=== PATIENT | male | born 1985 | race African-American/Black ===

== ENCOUNTER 2023-06-28 22:04 | Inpatient (IN) | payer BC ==
[2023-06-28] MEDS ORDERED: ONDANSETRON 4 MG/2 ML VIAL ONE (23:36)
[2023-06-28] MEDS ORDERED: MORPHINE 4 MG/ML SYR ONE (23:37)
[2023-06-28] MEDS ORDERED: FAMOTIDINE 20 MG/2 ML VIAL IV ONE (23:37)
[2023-06-28] MEDS ORDERED: METRONIDAZOLE 500mg IVPB 500 MG/100 ML BAG IV ONE (23:37)
[2023-06-28] MEDS ORDERED: CIPROFLOXACIN 400mg IV 400 MG/200 ML BAG IV ONE (23:37)
[2023-06-28] MEDS ORDERED: NA CHLORIDE 0.9% 1,000 ML ONE (23:37)
--- NOTE | 2023-06-28 23:44 | ER ---
Nurse's Notes [facility] Name: Anthony Velazco Age: 37 yrs Sex: Male : 1985 Arrival Date: 06/28/2023 Time: 22:04 Bed 7 Private MD: None, None Diagnosis: Obesity, unspecified;GI Bleed/ Gastrointestinal hemorrhage, unspecified-lower;Essential (primary) hypertension;Abnormal findings on diagnostic imaging of other specified body structures-1.1 cm pancreatic mass Presentation: 06/28 22:21 Chief complaint: Patient states: Black tarry stools X2 days. Pt reports that he is cm10 having some RLQ abdominal pain. Pt reports having nausea. Coronavirus screen: Vaccine status: Patient reports receiving the 2nd dose of the covid vaccine. Client denies travel out of the [place] in the last 14 days. Ebola Screen: Patient denies travel to an Ebola-affected area in the 21 days before illness onset. No symptoms or risks identified at this time. Initial Sepsis Screen: Does the patient meet any 2 criteria? No. Patient's initial sepsis screen is negative. Does the patient have a suspected source of infection? No. Patient's initial sepsis screen is negative. Risk Assessment: Do you want to hurt yourself or someone else? Patient reports no desire to harm self or others. Onset of symptoms was June 28, 2023. 22:21 Method Of Arrival: Ambulatory cm10 22:21 Acuity: PEG 3 cm10 Historical: - Allergies: 22:23 No Known Allergies; cm10 - PMHx: 22:23 Hypertensive disorder; Borderline DM; cm10 - Immunization history:: Adult Immunizations up to date. - Social history:: Smoking status: Patient reports the use of cigarette tobacco products, denies chronic smoking, but will smoke occasionally. - Family history:: not pertinent. Screenin/08 00:01 [facility] ED Fall Risk Assessment (Adult) History of falling in the last 3 months, tm6 including since admission No falls in past 3 months (0 pts). Abuse screen: Denies threats or abuse. Denies injuries from another. Nutritional screening: No deficits noted. Tuberculosis screening: No symptoms or risk factors identified. Assessment: 06/28 23:52 Pain: Denies pain. Neuro:. tm6 06/29 00:01 General: Appears in no apparent distress. Behavior is calm, cooperative. Neuro: Level tm6 of Consciousness is awake, alert, obeys commands, Oriented to person, place, time, situation. Cardiovascular: Capillary refill < 3 seconds Patient's skin is warm and dry. Respiratory: Airway is patent Respiratory effort is even, unlabored, Respiratory pattern is regular, symmetrical. GI: Abdomen is round non-distended, Reports bloody stool. : No signs and/or symptoms were reported regarding the genitourinary system. EENT: No signs and/or symptoms were reported regarding the EENT system. Derm: No signs and/or symptoms reported regarding the dermatologic system. Musculoskeletal: No signs and/or symptoms reported regarding the musculoskeletal system. 07:00 Reassessment: see [facility] for further charting. mb9 Vital Signs: 06/28 22:21 BP 147 / 102; Pulse 66; Resp 18; Temp 97.7; Pulse Ox 98% on R/A; Weight 169.64 kg; cm10 Height 5 ft. 10 in. ; Pain 3/10; 23:52 BP 139 / 77; Pulse 70; Pulse Ox 99% on R/A; tm6 22:21 Body Mass Index 53.66 (169.64 kg, 177.8 cm) cm10 22:21 Pain Scale: Adult cm10 [place]ia Coma Score: 23:37 Eye Response: spontaneous(4). Motor Response: obeys commands(6). Verbal Response: aniket oriented(5). Total: 15. ED Course: 22:10 Patient arrived in ED. es 22:10 None, None is Private Physician. es 22:23 Triage completed. cm10 22:23 Arm band placed on Patient placed in waiting room. cm10 22:29 Joel Linares MD is Attending Physician. aniket 23:23 Inserted saline lock: 20 gauge in right wrist, using aseptic technique. jb4 23:42 Dane Nguyen MD is Hospitalizing Provider. aniket 06/29 00:01 Patient has correct armband on for positive identification. Bed in low position. Side tm6 rails up X2. Provided Education on: plan of care. Client placed on continuous cardiac and pulse oximetry monitoring. NIBP monitoring applied. Door closed. Noise minimized. Lights dimmed. Warm blanket given. 00:01 No provider procedures requiring assistance completed. Missed attempt(s): 22 gauge in tm6 right antecubital area. Bleeding controlled, band aid applied, catheter tip intact. 00:45 CT Abd/Pelvis - IV Contrast Only In Process Unspecified. EDMS 00:55 Rolan Harris, RN is Primary Nurse. rv 01:43 Patient admitted, IV remains in place. rv Administered Medications: 06/28 23:51 Drug: NS 0.9% IV 1000 ml IV at 1 bolus Per protocol; 1000 mL bolus Route: IV; Rate: 1 tm6 bolus; Site: right wrist; 06/29 01:43 Follow up: Response: No adverse reaction; IV Status: Completed infusion; IV Intake: rv 1000ml 06/28 23:51 Drug: Famotidine IVP 20 mg IVP once; dilute with 10 mL 0.9% NaCl; give over 2 minutes tm6 Route: IVP; Site: right wrist; 06/29 01:43 Follow up: Response: No adverse reaction rv 06/28 23:51 Drug: Ondansetron IVP 4 mg IVP once; over 2 minutes Route: IVP; Site: right wrist; tm6 06/29 01:44 Follow up: Response: No adverse reaction rv 06/28 23:51 Drug: metroNIDAZOLE IVPB 500 mg 100 ml IVPB at 200 ml/hr once over 30 mins Volume: 100 tm6 ml; Route: IVPB; Rate: 200 ml/hr; Infused Over: 30 mins; Site: right wrist; 06/29 01:43 Follow up: IV Status: Infusion continued upon admission rv 00:58 Drug: Rocephin IV 2 grams IV at per protocol once; Given slow IV push per pharmarcy tm6 instructions Route: IV; Rate: per protocol; Site: right wrist; 01:43 Follow up: Response: No adverse reaction; IV Status: Completed infusion rv 01:07 Not Given (Patient Refused): morphineor iv 4 mg IVP once over 4 mins tm6 01:07 Drug: Ciprofloxacin IVPB 400 mg 200 ml IVPB once over 60 mins Volume: 200 ml; Route: tm6 IVPB; Infused Over: 60 mins; Site: right wrist; :43 Follow up: IV Status: Infusion continued upon admission rv Medication: 00:01 VIS not applicable for this client. tm6 Intake: :43 IV: 1000ml; Total: 1000ml. rv Outcome: 06/28 23:43 Decision to Hospitalize by Provider. aniket 01/08 01:43 Admitted to ER Hold. Please see [facility] for further documentation. rv Condition: good Instructed on the need for admit, 23:20 Admitted to Med/surg accompanied by tech, via wheelchair, room 210, with chart, Report rv called to VIKKI CHISHOLM 23:21 Patient left the ED. rv Signatures: Dispatcher [employer] Joel Santamaria MD MD cha Salyer, Edna es Bryson, James RN RN jb4 Rolan Harris RN RN Zeynep Baker, RN RN mb9 Lexi Flores, RN RN cm10 Hailey Buenrostro RN RN tm6
--- NOTE | 2023-06-28 23:44 | EDPHYS ---
Physician Documentation [facility] Name: Anthony Velazco Age: 37 yrs Sex: Male : 1985 Arrival Date: 06/28/2023 Time: 22:04 Bed 7 Private MD: None, None ED Physician Joel Linares HPI: 06/28 23:37 This 37 yrs old Black Male presents to ER via Ambulatory with complaints of Bloody aniket Stools. 23:37 The patient presents with abdominal pain in the lower abdomen, in the left lower aniket quadrant. Onset: The symptoms/episode began/occurred 3 day(s) ago. The patient presents to the emergency department with rectal bleeding, bright red blood with bowel movement. Onset: The symptoms/episode began/occurred 2 day(s) ago. Abdominal pain: located in the left lower quadrant. Modifying factors: The symptoms are alleviated by nothing, the symptoms are aggravated by nothing. The symptoms do not radiate. Associated signs and symptoms: The patient has no apparent associated signs or symptoms. The symptoms are described as crampy. Historical: - Allergies: 22:23 No Known Allergies; cm10 - PMHx: 22:23 Hypertensive disorder; Borderline DM; cm10 - Immunization history:: Adult Immunizations up to date. - Social history:: Smoking status: Patient reports the use of cigarette tobacco products, denies chronic smoking, but will smoke occasionally. - Family history:: not pertinent. ROS: 23:37 Constitutional: Negative for fever, chills, and weight loss, Eyes: Negative for injury, aniket pain, redness, and discharge, ENT: Negative for injury, pain, and discharge, Neck: Negative for injury, pain, and swelling, Cardiovascular: Negative for chest pain, palpitations, and edema, Respiratory: Negative for shortness of breath, cough, wheezing, and pleuritic chest pain, Back: Negative for injury and pain, : Negative for injury, bleeding, discharge, and swelling, MS/Extremity: Negative for injury and deformity, Skin: Negative for injury, rash, and discoloration, Neuro: Negative for headache, weakness, numbness, tingling, and seizure, Psych: Negative for depression, anxiety, suicide ideation, homicidal ideation, and hallucinations, Allergy/Immunology: Negative for hives, rash, and allergies, Endocrine: Negative for neck swelling, polydipsia, polyuria, polyphagia, and marked weight changes, Hematologic/Lymphatic: Negative for swollen nodes, abnormal bleeding, and unusual bruising, 23:37 Abdomen/GI: Positive for abdominal pain, abdominal distension, of the left lower quadrant, Exam: 23:37 Constitutional: This is a well developed, well nourished patient who is awake, alert, aniket and in no acute distress. Head/Face: Normocephalic, atraumatic. Eyes: Pupils equal round and reactive to light, extra-ocular motions intact. Lids and lashes normal. Conjunctiva and sclera are non-icteric and not injected. Cornea within normal limits. Periorbital areas with no swelling, redness, or edema. ENT: Nares patent. No nasal discharge, no septal abnormalities noted. Tympanic membranes are normal and external auditory canals are clear. Oropharynx with no redness, swelling, or masses, exudates, or evidence of obstruction, uvula midline. Mucous membranes moist. Neck: Trachea midline, no thyromegaly or masses palpated, and no cervical lymphadenopathy. Supple, full range of motion without nuchal rigidity, or vertebral point tenderness. No Meningismus. Chest/axilla: Normal chest wall appearance and motion. Nontender with no deformity. No lesions are appreciated. Cardiovascular: Regular rate and rhythm with a normal S1 and S2. No gallops, murmurs, or rubs. Normal PMI, no JVD. No pulse deficits. Respiratory: Lungs have equal breath sounds bilaterally, clear to auscultation and percussion. No rales, rhonchi or wheezes noted. No increased work of breathing, no retractions or nasal flaring. Back: No spinal tenderness. No costovertebral tenderness. Full range of motion. Male : Normal genitalia with no discharge or lesions. Skin: Warm, dry with normal turgor. Normal color with no rashes, no lesions, and no evidence of cellulitis. MS/ Extremity: Pulses equal, no cyanosis. Neurovascular intact. Full, normal range of motion. Neuro: Awake and alert, GCS 15, oriented to person, place, time, and situation. Cranial nerves II-XII grossly intact. Motor strength 5/5 in all extremities. Sensory grossly intact. Cerebellar exam normal. Normal gait. Psych: Awake, alert, with orientation to person, place and time. Behavior, mood, and affect are within normal limits. 23:37 Abdomen/GI: Rectal exam: is unremarkable, rectal tone normal, Stool: grossly bloody, no melena, min red blood, Liver: no appreciated palpable abnormalities, Hernia: not appreciated, Vital Signs: 22:21 BP 147 / 102; Pulse 66; Resp 18; Temp 97.7; Pulse Ox 98% on R/A; Weight 169.64 kg; cm10 Height 5 ft. 10 in. ; Pain 3/10; 23:52 BP 139 / 77; Pulse 70; Pulse Ox 99% on R/A; tm6 22:21 Body Mass Index 53.66 (169.64 kg, 177.8 cm) cm10 22:21 Pain Scale: Adult cm10 Rachel Coma Score: 23:37 Eye Response: spontaneous(4). Motor Response: obeys commands(6). Verbal Response: aniket oriented(5). Total: 15. MDM: 22:29 Patient medically screened. aniket 23:39 Differential diagnosis: diverticulitis, hemorrhoids, diverticulitis, non-specific abd aniket pain, pancreatitis, Peptic Ulcer Disease, urinary tract infection. Data reviewed: vital signs, nurses notes, lab test result(s), radiologic studies, CT scan. Consideration of Admission/Observation Patient was admitted/placed on observation. Escalation of care including admission/observation considered. I considered the following discharge prescriptions or medication management in the emergency department Medications were administered in the Emergency Department. See MAR. Independent interpretation of the following test(s) in the Emergency Department CT Scan: My interpretation is ct abd pain. Test considered but Not performed: Ultrasound no abd usg. Historians other than the Patient: Spouse/Significant Other: . Care significantly affected by the following chronic conditions: Diabetes, Hypertension, Obesity. Counseling: I had a detailed discussion with the patient and/or guardian regarding the historical points, exam findings, and any diagnostic results supporting the discharge/admit diagnosis, lab results, radiology results, the need for further work-up and treatment in the hospital. 06/28 22:30 Order name: CBC with Diff; Complete Time: 01:20 [facility] 06/28 22:30 Order name: CMP; Complete Time: 00:37 aniket 06/28 22:30 Order name: Lipase; Complete Time: 00:37 aniket 06/28 22:30 Order name: Urinalysis w/ reflexes; Complete Time: 05:28 aniket 06/29 02:03 Order name: Urinalysis w/ reflexes EDMS 06/29 02:03 Order name: CBC with Automated Diff EDMS 06/29 02:03 Order name: CBC with Automated Diff EDMS 06/29 02:03 Order name: Comprehensive Metabolic Panel EDMS 06/29 02:03 Order name: Comprehensive Metabolic Panel EDMS 06/29 08:45 Order name: CBC without Diff EDMS 06/28 22:30 Order name: CT Abd/Pelvis - IV Contrast Only [facility] 06/29 11:45 Order name: MRI EDMS 06/28 22:30 Order name: IV Saline Lock; Complete Time: 23:37 aniket 06/28 22:30 Order name: Labs collected and sent; Complete Time: 23:37 [facility] Administered Medications: 23:51 Drug: NS 0.9% IV 1000 ml IV at 1 bolus Per protocol; 1000 mL bolus Route: IV; Rate: 1 tm6 bolus; Site: right wrist; 06/29 01:43 Follow up: Response: No adverse reaction; IV Status: Completed infusion; IV Intake: rv 1000ml 06/28 23:51 Drug: Famotidine IVP 20 mg IVP once; dilute with 10 mL 0.9% NaCl; give over 2 minutes tm6 Route: IVP; Site: right wrist; 06/29 01:43 Follow up: Response: No adverse reaction rv 06/28 23:51 Drug: Ondansetron IVP 4 mg IVP once; over 2 minutes Route: IVP; Site: right wrist; tm6 06/29 01:44 Follow up: Response: No adverse reaction rv 06/28 23:51 Drug: metroNIDAZOLE IVPB 500 mg 100 ml IVPB at 200 ml/hr once over 30 mins Volume: 100 tm6 ml; Route: IVPB; Rate: 200 ml/hr; Infused Over: 30 mins; Site: right wrist; 06/29 01:43 Follow up: IV Status: Infusion continued upon admission rv 00:58 Drug: Rocephin IV 2 grams IV at per protocol once; Given slow IV push per pharmarcy tm6 instructions Route: IV; Rate: per protocol; Site: right wrist; 01:43 Follow up: Response: No adverse reaction; IV Status: Completed infusion rv :07 Not Given (Patient Refused): morphineor iv 4 mg IVP once over 4 mins tm6 01:07 Drug: Ciprofloxacin IVPB 400 mg 200 ml IVPB once over 60 mins Volume: 200 ml; Route: tm6 IVPB; Infused Over: 60 mins; Site: right wrist; :43 Follow up: IV Status: Infusion continued upon admission rv Disposition Summary: 06/28/23 23:43 Hospitalization Ordered Notes: Hospitalization Status: Inpatient Admission aniket Provider: Dane Nguyen cha Condition: Stable aniket Problem: new aniket Symptoms: are unchanged aniket Bed/Room Type: Standard aniket Location: Telemetry/MedSurg (Inpatient)(06/29/23 22:53) rv1 Room Assignment: 210(06/29/23 22:53) rv1 Diagnosis - Obesity, unspecified aniket - GI Bleed/ Gastrointestinal hemorrhage, unspecified - lower aniket - Essential (primary) hypertension aniket - Abnormal findings on diagnostic imaging of other specified body structures - 1.1 cm aniket pancreatic mass Forms: - Medication Reconciliation Form aniket - SBAR form aniket - Leadership Thank You Letter aniket Signatures: Dispatcher [employer] EDBriana Dinh RN RN Jeol Johns MD MD cha Villegas, Rebecca rv1 Lexi Flores RN RN cm10 Hailey Buenrostro RN RN tm6 Mery West pm6 Rolan Harris RN rv Corrections: (The following items were deleted from the chart) 06/28 23:51 23:43 Telemetry/MedSurg (Inpatient) aniket pm6 23:51 23:43 aniket pm6 06/29 19:41 06/28 23:51 [facility] ER HOLD pm6 kl 06/29 19:41 06/28 23:51 ERHOLD- pm6 kl 06/29 19:43 19:41 Telemetry/MedSurg (Inpatient) kl kl 19:43 19:41 204 kl kl 19:44 19:43 kl kl 22:53 19:43 [facility] ER HOLD kl rv1 22:53 19:44 ERHOLD- kl rv1
[2023-06-29 00:19] LABS: Albumin 3.4 g/dL (3.4-5.0); Bilirubin Total 0.3 mg/dL (0.2-1.0); Protein, Total 7.8 g/dL (6.4-8.2)
[2023-06-29 00:20] LABS: Potassium 4.2 mEq/L (3.5-5.1)
[2023-06-29] MEDS ORDERED: CEFTRIAXONE 2000 MG/VIAL ONE (00:44)
[2023-06-29 01:08] LABS: Absolute Lymphocytes (CBC) 4.3 K/uL (0.7-4.9); Hematocrit 35.5 % (39.6-49.0); Lymphocytes % 38.8 % (15.3-44.8); MCV 83.2 fL (80-100); MPV 7.9 fL (7.6-11.3); Platelets 308 thou/uL (152-406); RBC Red Blood Cell Count 4.27 M/uL (4.33-5.43)
[2023-06-29 01:45] LABS: Specific Gravity 1.028 (1.005-1.030); Urine Bilirubin NEGATIVE (Negative); Urine Blood Negative (Negative); Urine Clarity Clear (Clear); Urine Color Light-Yellow (Yellow); Urine Glucose NEGATIVE (Negative); Urine Protein NEGATIVE (Negative); Urine Urobilinogen Normal (Normal); Urine pH 5.5 (5.0-7.0)
[2023-06-29] MEDS ORDERED: ONDANSETRON 4 MG/2 ML VIAL IV PRN (01:58)
[2023-06-29] MEDS ORDERED: ACETAMINOPHEN 500 MG TAB PO PRN (01:58)
--- NOTE | 2023-06-29 01:58 | P.HP ---
Certification for Inpatient Patient admitted to: Inpatient With expected LOS: >2 Midnights Practitioner: I am a practitioner with admitting privileges, knowledge of patient current condition, hospital course, and medical plan of care. Services: Services provided to patient in accordance with Admission requirements found in Title 42 Section 412.3 of the Code of Federal Regulations Patient History Date of Service: 06/29/23 Reason for admission: Melena History of Present Illness: 37 yrs old AAM with past medical history of hypertension, borderline diabetes, obesity who came to ER with melena and left lower quadrant abdominal pain which has been going on for the last 3 to 4 days. Denies any fever or chills. No nausea vomiting or diarrhea. Patient noted that he has some right red blood per rectum with bowel movements. Associated with left lower quadrant abdominal pain. Dull aching 4 out of 10 in severity and intermittent. Denies any nausea or vomiting. Patient has on and off episodes of similar kind previously. Denies any diarrhea. No previous history of colonoscopy. No family history of colon cancer. Patient was assessed in the ER and was admitted for further management of melena. Dr. Laird was consulted by ER Home medications list reviewed: Yes - Past Medical/Surgical History Past Medical History: Reviewed- Non-Contributory -: Hypertension Past Surgical History: Reviewed- Non-Contributory - Family History Family History: Reviewed- Non-Contributory - Social History Smoking Status: Never smoker Review of Systems 10-point ROS is otherwise unremarkable General: Unremarkable Eyes: Unremarkable ENT: Unremarkable Respiratory: Unremarkable Cardiovascular: Unremarkable Gastrointestinal: Abdominal Pain, Melena, Hematochezia Genitourinary: Unremarkable Musculoskeletal: Unremarkable Integumentary: Unremarkable Neurological: Unremarkable Physical Examination - Vital Signs Temperature: 98.4 F Blood Pressure: 130/84 Pulse: 78 Respirations: 18 Pulse Ox (%): 98 - Physical Exam General: Alert, In no apparent distress, Oriented x3, Obese HEENT: Atraumatic, Normocephalic, PERRLA Neck: Supple, No Thyromegaly Respiratory: Clear to auscultation bilaterally, Normal air movement Cardiovascular: No edema, Regular rate/rhythm, Normal S1 S2 Capillary refill: <2 Seconds Gastrointestinal: Soft and benign, W/out hepatosplenomegaly, No guarding, Tenderness Musculoskeletal: No clubbing, No swelling Integumentary: No rashes, No breakdown Neurological: Normal speech, Normal strength at 5/5 x4 extr, Sensation intact, Cranial nerves 3-12 intact, Normal reflexes 2+, Normal affect Lymphatics: No axilla or inguinal lymphadenopathy - Studies Laboratory Data (last 24 hrs) 06/29/23 06/28/23 00:51 23:11 WBC 11.10 H Hgb 11.9 L Hct 35.5 L Plt Count 308 Sodium 138 Potassium 4.2 BUN 13 Creatinine 0.94 Glucose 85 Total Bilirubin 0.3 AST 22 ALT 39 Alkaline Phosphatase 99 Lipase 33 Assessment and Plan - Problems (Diagnosis) (1) Lower GI bleed Current Visit: Yes Status: Acute Plan: Will keep n.p.o. for now Started on Protonix twice daily ER already consulted Dr. Laird IV hydration Monitor H&H closely Transfuse as needed (2) Pancreatic mass Current Visit: Yes Status: Acute Plan: CT abdomen findings noted Surgical consult CT was consistent with hypodense 1.1 cm pancreatic mass Will get an MRI pancreatic mass protocol Monitor closely (3) Obesity Current Visit: Yes Status: Chronic Plan: Advise lifestyle modification Hypertension not on any medications at this time Anemia possibly due to blood loss Will monitor H&H closely Transfuse as needed Discharge Plan: Home Plan to discharge in: 48 Hours - Advance Directives Does patient have a Living Will: No Does patient have a Durable POA for Healthcare: No - Code Status/Comfort Care Code Status: Full Code Time Spent Managing Pts Care (In Minutes): 48
[2023-06-29] MEDS: NA CHLORIDE 0.9% 1,000 ML IV SCH ×2 (02:00→12:00)
[2023-06-29] MEDS ORDERED: SODIUM CHLORIDE 0.9% 10ML INJ IV PRN (02:53)
[2023-06-29] MEDS: PANTOPRAZOLE 40 MG INJ IVP SCH ×3 (02:53→21:00)
[2023-06-29] MEDS ORDERED: NA CHLORIDE 0.9% 1,000 ML ONE ×2 (02:57→12:48)
[2023-06-29] MEDS ORDERED: PANTOPRAZOLE 40 MG INJ ONE ×3 (02:57→21:12)
[2023-06-29 03:41] VITALS: O2SAT 100; BMI 53.5
--- NOTE | 2023-06-29 06:56 | P.PN ---
Date of Service: 06/29/23 Subjective: 7-8th episode of rectal bleeding in last ~1-2 years lasts for a few days then goes away on its own. reoccurring every few months Has never had colonoscopy. Reports hes been in the ER a few times Bright red blood in stool. Reports no change in bowel movement frequency (2-3 a day) Dull lower abdominal pain afebrile ROS: 10 point ROS as noted above, otherwise negative Physical Exam: GEN: Alert, oriented, NAD HEENT: Normal conjunctiva, sclera anicteric CV: Regular rate and rhythm, no edema Pulm: Nonlabored respirations on room air, clear bilaterally ABD: Soft, dull abdominal pain, Tender Neuro: Normal speech, normal affect vitals reviewed Problem List: Lower GI bleed h/o recurrent rectal bleeding Incidental 1.1 cm Pancreatic Mass Hypertension NIDDM2 Obesity Lower GI bleed h/o recurrent rectal bleeding Incidental 1.1 cm Pancreatic Mass 7-8th episode of rectal bleeding in last ~1-2 years. Previous episodes lasted for a few days then went away on its own. +reoccurring every few months Has never had colonoscopy. Reports hes been in the ER a few times Bright red blood in stool. CT abdomen (06/28): 1.1 cm hypodense pancreatic mass. No peripancreatic inflammatory changes / fluid collections. MRI ordered to further evaluate. Possible diverticular bleed / hemorrhoids General surgery consulted - Dr. Laird Hgb 11.9 on admission. Repeat improved to 12.8 Monitor H&H. Transfuse for hgb < 8. Continue PPI Continue IV fluids PRN analgesics / antiemetics Hypertension confirm home meds, restart as appropriate Reports home meds are fairly new (within ~1 month) NIDDM2 ACHS accucheck. SSI VTE: scd Code: full Dispo: home, ~24hrs
--- NOTE | 2023-06-29 08:18 | RAD REPORT ---
EXAM DESCRIPTION: Abdomen Pelvis W Contrast CLINICAL HISTORY: ABD PAIN TECHNIQUE: Contiguous axial images obtained through the abdomen and pelvis with IV contrast. Coronal and sagittal reformatted images were provided. This exam was performed according to our departmental dose-optimization program, which includes autom ated exposure control, adjustment of the mA and/or kV according to patient size and/or use of iterati ve reconstruction technique. COMPARISON: None available for comparison. FINDINGS: Lung bases: Clear Liver: Unremarkable Gallbladder and biliary system: Partially contracted gallbladder. Pancreas: Focal hypoattenuation in the body of the pancreas measuring approximately 1.1 cm in diamete r consistent with small pancreatic mass, not clearly cystic as seen on this noncontrast examination. Recommend further evaluation and characterization with contrast-enhanced MRI of the pancreas. No keila pancreatic inflammatory changes or fluid collections. Spleen: Unremarkable Adrenals: Unremarkable Kidneys: Normal renal cortical enhancement. No calculi. No hydronephrosis. GI: No obstruction. No appreciable mucosal thickening. Appendix: No findings to suggest acute appendicitis. Urinary bladder: Unremarkable Reproductive: Unremarkable as visualized Lymph nodes: No pathologically enlarged lymph nodes. Peritoneum: No focal fluid collection. No free air. Vessels: No abdominal aortic aneurysm. Abdominal wall: Unremarkable Bones: Unremarkable IMPRESSION: 1.1 cm hypodense pancreatic mass, not clearly cystic as seen on this noncontrast exami nation. Recommend further evaluation and characterization with contrast-enhanced MRI of the pancreas. No peripancreatic inflammatory changes or fluid collections. Electronically signed by: Geronimo Amato MD 06/29/2023 01:00 AM [employer] OPERATOR Due to temporary technical issues with the PACS/Fluency reporting system, reports are being signed by the in house radiologist without review as a courtesy to ensure prompt reporting. The interpreting r adiologist is fully responsible for the content of the report.
[2023-06-29 08:42] LABS: Hematocrit 38.4 % (39.6-49.0); MCV 83.1 fL (80-100); MPV 7.7 fL (7.6-11.3); Platelets 333 thou/uL (152-406); RBC Red Blood Cell Count 4.61 M/uL (4.33-5.43)
--- NOTE | 2023-06-29 11:45 | RAD REPORT ---
EXAM DESCRIPTION: MRI - Mri Abdomen W/Wo Cont - 06/29/2023 11:33 am CLINICAL HISTORY: Pancreatic mass Abdominal pain, blood in stool COMPARISON: Abdomen Pelvis W Contrast dated 06/29/2023 FINDINGS: The liver is prominent in size with fatty liver infiltration suspected. No biliary dilatat ion seen. The spleen, adrenal glands kidneys are within normal limits. In the region of the pancreatic head/neck junction there is a focal hypointense masslike lesion measu ring 17 x 12 mm. This appears mildly T2 hyperintense and does not significantly enhance. . No bulky lymphadenopathy seen in the abdomen. No free fluid collections or soft tissue mass. IMPRESSION: Vague, somewhat difficult to visualize, nonenhancing mass in the region of the pancreati c neck is seen measuring approximately 17 x 12 mm. Diffuse fatty liver.
[2023-06-30 04:45] LABS: Absolute Lymphocytes (CBC) 3.9 K/uL (0.7-4.9); Hematocrit 36.5 % (39.6-49.0); Lymphocytes % 39.1 % (15.3-44.8); MPV 7.8 fL (7.6-11.3); Platelets 317 thou/uL (152-406)
[2023-06-30 05:00] LABS: Protime INR 1.03
[2023-06-30 05:07] LABS: Albumin 3.1 g/dL (3.4-5.0); Bilirubin Total 0.3 mg/dL (0.2-1.0); Magnesium 2.1 mg/dL (1.6-2.4); Potassium 3.6 mEq/L (3.5-5.1); Protein, Total 6.8 g/dL (6.4-8.2)
[2023-06-30] MEDS: PANTOPRAZOLE 40 MG INJ IVP SCH (07:30)
[2023-06-30 07:51] VITALS: BP 133/69; TEMP 98
[2023-06-30] MEDS ORDERED: POTASSIUM CL SA 10 MEQ TAB PO ONE (09:00)
--- NOTE | 2023-06-30 13:05 | P.DS ---
Admission Date: 06/29/23 Discharge Date: 06/30/23 Disposition: ROUTINE DISCHARGE Reason for Admission: Melena Brief History of Present Illness: 37 yrs old gentleman with past medical history of hypertension, borderline diabetes, obesity came to ER with melena and left lower quadrant abdominal pain which has been going on for 3 to 4 days. He denied nausea vomiting or diarrhea. Patient also noted right red blood per rectum with bowel movements. Associated with left lower quadrant abdominal pain. Patient has on and off episodes of similar kind previously. No previous history of colonoscopy. No family history of colon cancer. CT abdomen and pelvis done in the emergency department demonstrated pancreatic mass. Dr. Laird was informed by the ER provider patient hospitalized for further management. Hospital Course: Diagnosis Lower GI bleed h/o recurrent rectal bleeding Incidental 1.1 cm Pancreatic Mass Hypertension NIDDM2 Obesity Lower GI bleed h/o recurrent rectal bleeding Incidental 1.1 cm Pancreatic Mass Patient reported 7-8th episode of rectal bleeding in last past 1-[address] abdomen (06/28): 1.1 cm hypodense pancreatic mass. No peripancreatic in flammatory changes / fluid collections. MRCP: Pancreatic mass. General surgery - Dr. Laird consulted who recommended further workup as outpatient and offered to coordinate his care regarding the pancreatic mass and endoscopies. Patient placed on IV PPI and transition to oral PPI on discharge Hypertension Stable Home meds resumed on discharge. NIDDM2 Managed with ACHS accucheck and SSI as inpatient. Metformin resumed on discharge. Vital Signs/Physical Exam: Temp Pulse Resp BP Pulse Ox 98 F 71 20 133/69 97 06/30/23 07:46 06/30/23 07:46 06/30/23 07:46 06/30/23 07:46 06/30/23 07:46 General: Alert, In no apparent distress, Oriented x3 HEENT: Mucous membr. moist/pink, Sclerae nonicteric Neck: Supple, JVD not distended Respiratory: Clear to auscultation bilaterally, Normal air movement Cardiovascular: No edema, Regular rate/rhythm, Normal S1 S2, No murmurs Gastrointestinal: Normal bowel sounds, Soft and benign, Non-distended, No tender ness Musculoskeletal: No swelling Integumentary: No rashes, No cyanosis Neurological: Normal speech, Normal strength at 5/5 x4 extr Lymphatics: No axilla or inguinal lymphadenopathy Laboratory Data at Discharge: WBC 9.90 thou/uL (4.3-10.9) 06/30/23 04:16 Hgb 12.3 g/dL (13.6-17.9) L 06/30/23 04:16 Hct 36.5 % (39.6-49.0) L 06/30/23 04:16 Plt Count 317 thou/uL (152-406) 06/30/23 04:16 PT 11.3 SECONDS (9.5-12.5) 06/30/23 04:16 INR 1.03 06/30/23 04:16 Sodium 139 mEq/L (136-145) 06/30/23 04:16 Potassium 3.6 mEq/L (3.5-5.1) 06/30/23 04:16 BUN 10 mg/dL (7-18) 06/30/23 04:16 Creatinine 0.95 mg/dL (0.70-1.30) 06/30/23 04:16 Glucose 100 mg/dL (74-106) 06/30/23 04:16 Magnesium 2.1 mg/dL (1.6-2.4) 06/30/23 04:16 Total Bilirubin 0.3 mg/dL (0.2-1.0) 06/30/23 04:16 AST 13 U/L (15-37) L 06/30/23 04:16 ALT 34 U/L (16-61) 06/30/23 04:16 Alkaline Phosphatase 89 U/L (45-117) 06/30/23 04:16 Lipase 33 U/L (13-75) 06/28/23 23:11 Home Medications: Amlodipine [Norvasc*] 10 mg PO DAILY 06/29/23 Ergocalciferol (Vitamin D2) [Vitamin D2] 50,000 iu PO DIRECTED 06/29/23 Fluoxetine HCl [Prozac*] 10 mg PO DAILY 06/29/23 Metformin ER [Glucophage ER*] 500 mg PO DAILY 06/29/23 Pantoprazole [Protonix Tab] 40 mg PO BID #60 tab 06/30/23 New Medications: Pantoprazole [Protonix Tab] 40 mg PO BID #60 tab Diet: ADA Activity: Ad scott Followup: Kiko Laird MD [ACTIVE - CAN ADMIT] - 1 Week NONE,NONE [Primary Care Provider] - Time spent managing pt's care (in minutes): 33
== END 2023-06-30 12:21 | disposition home or self-care (01) | DRG 378 ==
LOC: ER 22:04 → ERHOLD 06-29 01:58 → 2ND 06-29 23:12
PROVIDERS: ADMIT Family Medicine; ATTEND Internal Medicine
DX: K92.1 Melena (principal); Z68.43 Body mass index [BMI] 50.0-59.9, adult; E66.9 Obesity, unspecified; I10 Essential (primary) hypertension; E11.9 Type 2 diabetes mellitus without complications; K86.9 Disease of pancreas, unspecified; D64.9 Anemia, unspecified; F17.210 Nicotine dependence, cigarettes, uncomplicated; Z79.84 Long term (current) use of oral hypoglycemic drugs; Z79.899 Other long term (current) drug therapy
CPT/HCPCS: 36415; 74177; 74183; 80053; 81003; 83690; 83735; 85025; 85027; 85610; 96365; 96367; 96375; 99285; A9577; C9113; J0696; J0744; J2405; J7030; Q9967